=== PATIENT | male | born 1970 | race Caucasian/White ===

== ENCOUNTER 2020-07-03 15:35 | Emergency (ER) | payer OTHER ==
[~2020-07-03] VITALS: Ht 167.6 cm; Wt 99.8 kg
[~2020-07-03 15:35] MED LIST: Cleocin HCl300 MG PO; HYDR1TAB94; PENVK500; SULTRIDS PO
[2020-07-03 16:31] LABS: BASOPHILS ABSOLUTE AUTO 0.07 K/mm3 (0.00-0.23); BASOPHILS PERCENT AUTO 1 % (0-2); EOSINOPHILS ABSOLUTE AUTO 0.17 K/mm3 (0.00-0.68); EOSINOPHILS PERCENT AUTO 2 % (0-6); Hemoglobin 16.3 g/dL (13.5-17.5); IMMATURE GRAN ABSOLUTE AUTO 0.06 K/mm3 (0.00-0.10); IMMATURE GRAN PERCENT AUTO 1 % (0-1); LYMPHOCYTES ABSOLUTE AUTO 2.53 K/mm3 (0.84-5.20); LYMPHOCYTES PERCENT AUTO 22 % (21-46); MONOCYTES ABSOLUTE AUTO 0.96 K/mm3 (0.16-1.47); MONOCYTES PERCENT AUTO 9 % (4-13); Mean Corpuscular HGB 29.2 pg (26.0-34.0); Mean Corpuscular HGB Conc 32.6 g/dL (31.5-36.5); Mean Corpuscular Volume 89 fL (80-100); Mean Platelet Volume 10.3 fL (9.1-12.4); NEUTROPHILS ABSOLUTE AUTO 7.57 K/mm3 (1.96-9.15); NEUTROPHILS PERCENT AUTO 67 % (41-73); Platelet Count 319 K/mm3 (150-400); RDW Coefficient Variation 13.8 % (11.7-14.2); RDW Standard Deviation 45.1 fL (35.1-46.3); Red Blood Cell Count 5.59 M/mm3 (4.30-5.90); White Blood Cell Count 11.36 K/mm3 (4.00-11.30)
[2020-07-03 16:42] LABS: Alanine Aminotransfer (ALT/SGP 65 U/L (12-78); Albumin, Blood 4.1 g/dL (3.4-5.0); Albumin/Globulin Ratio 1.1 (0.8-1.8); Alk Phos 83 U/L (50-136); Anion Gap 7 mmol/L (6-16); Aspartate Aminotrans (AST/SGOT 26 U/L (12-37); Bilirubin, Total 0.3 mg/dL (0.1-1.0); Blood Urea Nitrogen 21 mg/dL (8-24); Bun/Creatinine Ratio 21.8 (12.0-20.0); CO2, Blood 23 mmol/L (21-32); Calcium, Blood 8.9 mg/dL (8.5-10.1); Chloride, Blood 110 mmol/L (98-108); Creatinine, Blood 0.96 mg/dL (0.60-1.20); Globulin, Blood 3.7 g/dL (2.2-4.0); Glomerular Filtration Rate >60 (60-); Glucose, Blood 109 mg/dL (70-99); Potassium, Blood 3.7 mmol/L (3.5-5.5); Sodium, Blood 140 mmol/L (136-145); Total Protein, Blood 7.8 g/dL (6.4-8.2); Troponin I <0.015 ng/mL (0.000-0.040)
== END 2020-07-03 19:57 | disposition home or self-care (01) ==
LOC: ER 15:35
PROVIDERS: Physician Assistant
DX: R07.9 Chest pain, unspecified (principal); F17.200 Nicotine dependence, unspecified, uncomplicated; Z53.20 Procedure and treatment not carried out because of patient's decision for unspecified reasons
CPT/HCPCS: 36415; 71046; 80053; 83880; 84484; 85025; 93005; 93010; 99285-25

== ENCOUNTER 2020-07-05 15:28 | Inpatient (IN) | payer OTHER ==
[~2020-07-05] VITALS: Ht 167.6 cm; Wt 102.9 kg
[2020-07-05] MEDS ORDERED: IBUP200 PO (16:15)
[2020-07-05] MEDS ORDERED: TRAM50 PO ×2 (16:16→17:28)
[2020-07-05 16:45] LABS: BASOPHILS ABSOLUTE AUTO 0.06 K/mm3 (0.00-0.23); BASOPHILS PERCENT AUTO 1 % (0-2); EOSINOPHILS ABSOLUTE AUTO 0.15 K/mm3 (0.00-0.68); EOSINOPHILS PERCENT AUTO 1 % (0-6); Hematocrit 47.3 % (37.0-53.0); Hemoglobin 15.3 g/dL (13.5-17.5); IMMATURE GRAN ABSOLUTE AUTO 0.05 K/mm3 (0.00-0.10); IMMATURE GRAN PERCENT AUTO 0 % (0-1); LYMPHOCYTES PERCENT AUTO 20 % (21-46); MONOCYTES ABSOLUTE AUTO 1.06 K/mm3 (0.16-1.47); MONOCYTES PERCENT AUTO 9 % (4-13); Mean Corpuscular HGB Conc 32.3 g/dL (31.5-36.5); Mean Corpuscular Volume 90 fL (80-100); Mean Platelet Volume 10.4 fL (9.1-12.4); NEUTROPHILS ABSOLUTE AUTO 8.21 K/mm3 (1.96-9.15); NEUTROPHILS PERCENT AUTO 69 % (41-73); Platelet Count 309 K/mm3 (150-400); RDW Coefficient Variation 13.7 % (11.7-14.2); RDW Standard Deviation 45.6 fL (35.1-46.3); Red Blood Cell Count 5.27 M/mm3 (4.30-5.90); White Blood Cell Count 11.93 K/mm3 (4.00-11.30)
[2020-07-05 16:58] LABS: International Normalized Ratio 0.96; Prothrombin Time Results 10.3 Sec (9.7-11.5)
[2020-07-05] MEDS ORDERED: IBUP800 PO (17:29)
[2020-07-05 17:33] LABS: Alanine Aminotransfer (ALT/SGP 72 U/L (12-78); Albumin, Blood 3.9 g/dL (3.4-5.0); Albumin/Globulin Ratio 1.1 (0.8-1.8); Alk Phos 75 U/L (50-136); Anion Gap 7 mmol/L (6-16); Aspartate Aminotrans (AST/SGOT 41 U/L (12-37); Bilirubin, Total 0.3 mg/dL (0.1-1.0); Blood Urea Nitrogen 18 mg/dL (8-24); Bun/Creatinine Ratio 20.2 (12.0-20.0); CO2, Blood 24 mmol/L (21-32); Calcium, Blood 9.2 mg/dL (8.5-10.1); Chloride, Blood 110 mmol/L (98-108); Creatinine, Blood 0.89 mg/dL (0.60-1.20); Globulin, Blood 3.6 g/dL (2.2-4.0); Glomerular Filtration Rate >60 (60-); Glucose, Blood 101 mg/dL (70-99); Sodium, Blood 141 mmol/L (136-145); Total Protein, Blood 7.5 g/dL (6.4-8.2)
[2020-07-06 01:29] LABS: Hematocrit 44.6 % (37.0-53.0); Hemoglobin 14.7 g/dL (13.5-17.5); Mean Corpuscular HGB 29.3 pg (26.0-34.0); Mean Corpuscular Volume 89 fL (80-100); Mean Platelet Volume 10.2 fL (9.1-12.4); Platelet Count 294 K/mm3 (150-400); RDW Coefficient Variation 13.7 % (11.7-14.2); RDW Standard Deviation 44.5 fL (35.1-46.3); Red Blood Cell Count 5.02 M/mm3 (4.30-5.90); White Blood Cell Count 11.37 K/mm3 (4.00-11.30)
[2020-07-06 02:02] LABS: Anion Gap 5 mmol/L (6-16); Blood Urea Nitrogen 21 mg/dL (8-24); Bun/Creatinine Ratio 23.8 (12.0-20.0); CHOL/HDL RATIO 6.5; CO2, Blood 26 mmol/L (21-32); Calcium, Blood 8.7 mg/dL (8.5-10.1); Chloride, Blood 108 mmol/L (98-108); Cholesterol 222 mg/dL (50-200); Creatinine, Blood 0.88 mg/dL (0.60-1.20); Glomerular Filtration Rate >60 (60-); Glucose, Blood 107 mg/dL (70-99); HDL Cholesterol 34 mg/dL (>39); LDL/HDL RATIO 4.3; Low Density Lipoprotein Chol 145 mg/dL (0-110); Potassium, Blood 3.6 mmol/L (3.5-5.5); Sodium, Blood 139 mmol/L (136-145); Triglycerides 217 mg/dL (30-160); Very Low Density Lipoprot Chol 43 mg/dL (6-32)
--- NOTE | 2020-07-06 05:22 | NUR ---
SHIFT SUMMARY PT A&O; ORIENTED TO ROOM AND CALL LIGHT; ANSWERING QUESTIONS APPROPRIATELY; AT BEDSIDE START OF SHIFT TO ASSIST W/ ADMISSION; VSS; DENIES CHEST PAIN; NSR NOTED ON TELE W/ HR 80'S; O2 SATS >93 ON RA; INDEPENDENT IN ROOM W/ NO GAIT DISTURBANCES NOTED; NPO AT MIDNIGHT IN PREPERATION FOR PROCEDURE; HEP GTT ADJUSTED TO 15/U/KG PER PHARMACY; CALL LIGHT IN REACH; BED IN LOWEST POSITION; WILL CONTINUE TO MONITOR CLOSELY UNTIL HAND OFF TO DAY SHIFT RN.
--- NOTE | 2020-07-06 09:03 | NUR ---
AM SHIFT NOTE PT RESTING IN BED; IND IN ROOM. A&Ox4; IRIITABLE BUT COOPERATIVE WITH CARE. INITIALLY PT DENIES CHEST PAIN: AT APPROX 0745 PT REPORTS FEELING SQEEZING AND "I CAN REALLY FEEL MY HEART PUMPING" REPORTS 3/10 DISCOMFORT; EKG NORMAL SINUS; NITRO PROVIDED WITH RELIEF PER PT. PT REPORT CHRONIC BACK PAIN AND RIGHT SHOULDER PAIN, MEDICATED WITH SCHEDULED AND PRN PER ORDERS. PT DENIES SOB; NAUSEA AND DIZZINESS. VSS. NPO FOR ANGIO; MEDS WITH SIP OF WATER. NO OTHER ACUTE CHANGES NOTED. WILL CONTINUE TO MONITOR UNTIL REPORT GIVEN TO ONCOMING RN.
--- NOTE | 2020-07-06 12:35 | NUR ---
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 He has a family history of HTN. His Ashlee is at the bedside. He was admitted on 07/05/20 with a non-stemi. He developed chest pain on Wednesday and was seen in the ER but opted to not be admitted for observation per notes in chart. He followed up with his PCP on Wednesday and was instructed to come to the hospital for further evaluation. Chemo is anxious about his angiogram which is planned for this afternoon. 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 He is the sole provider for his family ( Julisa and two teenage boys 16 & 19.) He reports a large amount of stress recently, his has had some medical issues, his log truck needs about $10,000 worth of work which he states he doesn't have that money and the chest pain which started on Wednesday. He reports years of chronic pain in his low back for which he is on a pain contract. He reports that his insurance will not pay for a surgery. This is also a stressor in his life. He reports his mother is in a facitliy in [place] with severe dementia. He was not seen her in the past 6 years which he blames on his step father. 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 "If there is not a chance at recovery, I wouldn't want it." He states that if there was a problem that could be fixed with minimal interventions he would like that. He is adament that he does not want to "Have my chest cracked open" if the outcome of his angiogram is not able to be fixed during the procedure. He is agreeable to a stent placement if that were necessary. He reports that he and his have talked extensively about what he would want or not want as far as treatments. He currently does not have a POLST form or AD. Offered him copies of an AD so that he would be able to place in writing his wishes. He states that Julisa fills out all the paperwork after they discuss things. Ashlee states that they both need to complete AD forms. She requested that this telegraphic typewriter operator chief bring two copies of the AD to Keron' room. Two AD provided. Pt is a full code at this time which is consistent with his wishes for some treatments. Again he would not want equipment operator intermodal yard life support. This visit ended when staff from medical lab scientist entered Chemo's room to come and take him to the medical lab scientist. provided Chemo and Ashlee AD forms and can contact PC office or other staff is they have any questions re: filling out those forms.
--- NOTE | 2020-07-06 13:59 | NUR ---
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 PT REPORTS INCREASED TO RIGHT SHOULD PAIN; DENIES NEEDS FOR INTERVENTION. WILL CONTINUE TO MONITOR.
[2020-07-06] MEDS ORDERED: ACET325 PO (17:40)
[2020-07-06] MEDS ORDERED: CLOP75 PO (17:41)
[2020-07-06] MEDS ORDERED: ASPI81CH PO (17:41)
[2020-07-06] MEDS ORDERED: ATOR20 PO (17:41)
[2020-07-06] MEDS ORDERED: LIDO700A20 TOP (17:42)
[2020-07-06] MEDS ORDERED: NICO21TP TOP (17:43)
[2020-07-06] MEDS ORDERED: NICOTINE GUM2 M1 PO (17:43)
--- NOTE | 2020-07-06 19:27 | NUR ---
DISCHARGE SUMMARY TR BAND TO RIGHT WRADIAL REMOVED PER PROTOCOL; TEGADERM IN PLACE. NO OTHER CHANGES T/O SHIFT. VSS. PT EDUCATED ON DISCHARGE INSTUCTIONS, FOLLOW UP APPOINTMENTS, MEDICATION CHANGES AND WOUND CARE. PRESCRIPTION FAXED TO [facility] PER PT REQUEST; PICKED UP MEDICATIONS PRIOR TO DISCAHRGE. DISCUSSED THE IMPORTANCE OF PLAVIX AND ASPIRIN; PT SIGNED PLAVIX CONTRACT. PT EDUCATED ON ACTIVITY RESTRICTIONS FOR RIGHT RADIAL/STEND PLACEMENT. STENT CARD PROVIDED TO PT. PT LEFT ROOM 1900 ON FOOT. PT STABLE UPON DISCHARGE.
== END 2020-07-06 18:55 | disposition home or self-care (01) | DRG 247 ==
LOC: ER 15:28 → PCU 17:45
PROVIDERS: Emergency Medicine; Nurse Practitioner Acute Care; Physician Assistant; ADMIT Internal Medicine
PROC: 027034Z Dilation of Coronary Artery, One Artery with Drug-eluting Intraluminal Device, Percutaneous Approach (ICD-10-PCS; principal; 2020-07-06)
PROC: B2111ZZ Fluoroscopy of Multiple Coronary Arteries using Low Osmolar Contrast (ICD-10-PCS; 2020-07-06)
DX: I21.4 Non-ST elevation (NSTEMI) myocardial infarction (principal); F17.210 Nicotine dependence, cigarettes, uncomplicated; I10 Essential (primary) hypertension; Z66 Do not resuscitate; E78.5 Hyperlipidemia, unspecified; M51.26 Other intervertebral disc displacement, lumbar region; I25.10 Atherosclerotic heart disease of native coronary artery without angina pectoris; G89.29 Other chronic pain
CPT/HCPCS: 36415; 71046; 76937; 80048; 80053; 80061; 83880; 84484; 85025; 85027; 85347; 85610; 85730; 93005; 93010; 93454; 96365; 96366; 96375; 96376; 99152; 99153; 99284-25; A9270-GY; C1725; C1769; C1874; C1887; C1894; C9600; G0378; J1644; J2250; J3010; J3246; J7030; Q9967